=== PATIENT | male | born 1950 | race Caucasian/White ===

== ENCOUNTER 2019-12-22 15:40 | Inpatient (IN) | payer MEDICARE, BC ==
[2019-12-22] MEDS ORDERED: Acetaminophen 325 MG Tab PO PRN (16:01)
[2019-12-22] MEDS ORDERED: Acetaminophen 650 MG Supp RECTAL PRN (16:01)
[2019-12-22] MEDS ORDERED: hydrOXYzine HCl 25 MG Tab PO PRN (16:04)
[2019-12-22] MEDS ORDERED: HYDROmorphone 0.5 MG/0.5 ML Syringe IVPUSH PRN (16:07)
[2019-12-22] MEDS: Cholestyramine/Sucrose Powder 4 GM Packet PO SCH (17:40)
[2019-12-22] MEDS: Dextrose 5%-Lactated Ringers 1,000 ML IV SCH (19:03)
[2019-12-22] MEDS: Pantoprazole 40 MG Vial IV SCH (19:03)
[2019-12-22] MEDS: rOPINIRole 0.5 MG Tab PO SCH (21:34)
[2019-12-23] MEDS: Dextrose 5%-Lactated Ringers 1,000 ML IV SCH ×4 (02:14→23:20)
[2019-12-23] MEDS: Pantoprazole 40 MG Vial IV SCH ×2 (05:57→18:07)
[2019-12-23] MEDS: Cholestyramine/Sucrose Powder 4 GM Packet PO SCH ×2 (07:45→16:27)
[2019-12-23] MEDS: hydrOXYzine HCl 25 MG Tab PO SCH (08:14)
[2019-12-23] MEDS ORDERED: Metoprolol Tartrate 25 MG Tab PO SCH (09:00)
[2019-12-23] MEDS ORDERED: Tamsulosin 0.4 MG Cap.ER PO SCH (09:00)
--- NOTE | 2019-12-23 09:56 | PN ---
DATE OF SERVICE: 12/23/2019 SUBJECTIVE: Barber states he remains to have some pain in his right upper quadrant. He is n.p.o. for an EGD. REVIEW OF SYSTEMS: Remainder of review of systems negative for any pertinent positives and negatives. OBJECTIVE: GENERAL: Barber Keith is a pleasant 69-year-old male. VITAL SIGNS: TPR at 0212 is 96, 56, 16. Blood pressure 138/78. HEENT: Negative. NECK: Supple. HEART: Regular rate and rhythm. LUNGS: Clear. ABDOMEN: Remains to be tender with some fullness in the right upper quadrant, minimal in the mid epigastric area. EXTREMITIES: Without peripheral edema. ASSESSMENT: Severe mid epigastric abdominal pain, history of duodenal ulcer. PLAN: 1. Orders to be written post EGD. 2. Also of note, patient has a fecal stimulator in his right buttock, and he can regulate that himself. 3. Mrs. Keith will be bringing his CPAP machine for him to use. 4. We will evaluate p.r.n. or in a.m. Massiel Mtz PA-C /[id number]
[2019-12-23] MEDS ORDERED: Propofol 200 MG/20 ML SDV ONE (13:01)
[2019-12-23] MEDS ORDERED: fentaNYL 100 MCG/2 ML SDV ONE (13:01)
[2019-12-23] MEDS ORDERED: Midazolam 1 MG/ML 2 ML SDV ONE (13:01)
[2019-12-23] MEDS: HYDROmorphone 2 MG Tab PO PRN ×2 (18:06→23:19)
[2019-12-23 18:28] LABS: HEMOGLOBIN A1C 5.6 % (4.5-6.2)
[2019-12-23] MEDS: Tamsulosin 0.4 MG Cap.ER PO SCH (20:56)
[2019-12-23] MEDS: rOPINIRole 0.5 MG Tab PO SCH (20:57)
[2019-12-24] MEDS ORDERED: Acetaminophen 650 MG in Premix Bag 1 BAG IV ONE (01:10)
[2019-12-24] MEDS: Ondansetron 4 MG/2 ML SDV IVPUSH PRN ×2 (01:24→17:44)
[2019-12-24] MEDS: Pantoprazole 40 MG Vial IV SCH (05:08)
[2019-12-24] MEDS ORDERED: Bupivacaine 0.5% 50 ML MDV ONE (06:41)
[2019-12-24] MEDS ORDERED: Lidocaine 1% with EPINEPHrine 1:100,000 50 ML MDV ONE (06:41)
[2019-12-24] MEDS: Metoprolol Tartrate 25 MG Tab PO SCH (07:10)
[2019-12-24] MEDS ORDERED: Propofol 200 MG/20 ML SDV ONE ×2 (08:32→12:45)
[2019-12-24] MEDS ORDERED: Rocuronium 50 MG/5 ML Vial ONE (08:32)
[2019-12-24] MEDS ORDERED: Neostigmine Methylsulfate 1 MG/ML 5 ML Syringe ONE (08:32)
[2019-12-24] MEDS ORDERED: Succinylcholine 200 MG/10 ML MDV ONE (08:32)
[2019-12-24] MEDS ORDERED: Dexamethasone 4 MG/ML SDV ONE (08:32)
[2019-12-24] MEDS ORDERED: Ondansetron 4 MG/2 ML SDV ONE (08:32)
[2019-12-24] MEDS ORDERED: Glycopyrrolate 0.2 MG/ML 5 ML MDV ONE (08:32)
[2019-12-24] MEDS ORDERED: fentaNYL 250 MCG/5 ML SDV ONE ×2 (08:33→09:31)
[2019-12-24] MEDS: hydrOXYzine HCl 25 MG Tab PO SCH (08:55)
[2019-12-24] MEDS: Cholestyramine/Sucrose Powder 4 GM Packet PO SCH (08:55)
[2019-12-24] MEDS ORDERED: Magnesium Sulfate 3 GM in Sodium Chloride 0.9% 100 ML IV SCH (09:30)
[2019-12-24] MEDS ORDERED: Ketamine 50 MG in Sodium Chloride 0.9% 49.5 ML IV SCH (09:30)
[2019-12-24] MEDS ORDERED: Naloxone 0.4 MG/ML SDV IV PRN (09:30)
[2019-12-24] MEDS ORDERED: Magnesium Sulfate 4.8 GM in Sodium Chloride 0.9% 250 ML IV ONE (09:30)
[2019-12-24] MEDS ORDERED: Ropivacaine 50 ML, dexAMETHasone 8 MG, EPINEPHrine 0.4 MG, Sodium Chloride 0.9% 27.6 ML NERVRT SCH ×4 (09:30)
[2019-12-24] MEDS ORDERED: Ketamine 500 MG/5 ML MDV IV SCH (09:30)
[2019-12-24] MEDS ORDERED: cefOXitin 2 GM in Sodium Chloride 0.9% 50 ML IV ONE (09:30)
[2019-12-24] MEDS ORDERED: Labetalol 20 MG/4 ML Syringe ONE (10:22)
[2019-12-24] MEDS ORDERED: Lactated Ringers 1,000 ML ONE (10:26)
[2019-12-24] MEDS ORDERED: Meropenem 500 MG SDV ONE (11:26)
[2019-12-24] MEDS: HYDROmorphone/Normal Saline 15 MG/30 ML PCA IV PRN (12:27)
[2019-12-24] MEDS: Dextrose 5%-Lactated Ringers 1,000 ML IV SCH ×2 (13:55→21:13)
--- NOTE | 2019-12-24 14:01 | CR ---
CHEST: Portable 12/24/2019 at 1:09 PM CLINICAL HISTORY:Central line insertion COMPARISON:None FINDINGS: There is a left subclavian catheter in place. Tip is in the superior vena caval brachycephalic junction. Lungs are clear. There is no pneumothorax or effusion.. IMPRESSION: Left subclavian catheter placement No acute cardiopulmonary process
[2019-12-24] MEDS ORDERED: diphenhydrAMINE 50 MG/ML SDV IVPUSH PRN (15:00)
[2019-12-24] MEDS ORDERED: Calcium Gluconate 10% 1 GM/10 ML SDV IVPUSH PRN (15:00)
[2019-12-24] MEDS ORDERED: Metoclopramide 10 MG/2 ML SDV IVPUSH PRN (15:00)
[2019-12-24] MEDS ORDERED: Labetalol 20 MG/4 ML Syringe IVPUSH PRN (15:00)
[2019-12-24] MEDS ORDERED: hydrOXYzine HCL 100 MG/2 ML SDV IM PRN (15:00)
[2019-12-24] MEDS ORDERED: Acetaminophen 500 MG Tab PO PRN (15:00)
[2019-12-24] MEDS: cefOXitin 2 GM in Sodium Chloride 0.9% 50 ML IV SCH ×2 (15:37→21:14)
[2019-12-24] MEDS: Acetaminophen 500 MG Tab PO SCH (15:38)
[2019-12-24] MEDS ORDERED: MVI, Adult with Vitamin K 10 ML, Thiamine 200 MG, Chromium/Copper/Mang/Selen/Zn 1 ML in... IV SCH ×4 (16:00)
--- NOTE | 2019-12-24 16:37 | PN ---
DATE OF SERVICE: 12/24/2019 SUBJECTIVE: Barber is n.p.o. He will be going to Surgery. He had a pretty good night. He did wake up with a headache and some nausea during the middle of the night, was given some Tylenol and Zofran and that resolved. Surgery was explained to him by Eris Blackburn MD. He has no questions or concerns. REVIEW OF SYSTEMS: Remainder of review of systems negative for any pertinent positives and negatives. OBJECTIVE: GENERAL: Barber Keith is a pleasant 69-year-old male. He is alert and orientated. VITAL SIGNS: TPR at 0712: 95.6, 76, 16, blood pressure is 133/85. HEENT: Negative. NECK: Supple. HEART: Regular rate and rhythm. LUNGS: Clear. ABDOMEN: No change. Remains to have tenderness in the right upper quadrant. EXTREMITIES: Without peripheral edema. ASSESSMENT: Esophagogastroduodenoscopy. Eris Blackburn MD, on 12/23/2019. PLAN: He will be going to the OR today. Orders will be written postoperatively. Check EKG preop. We will evaluate p.r.n. or in a.. Massiel Mtz PA-C /[id number]
[2019-12-24] MEDS: Heparin Sodium 5,000 Units/ML Vial SUBCUT SCH (19:34)
[2019-12-24] MEDS: rOPINIRole 0.5 MG Tab PO SCH (21:16)
[2019-12-24] MEDS: Tamsulosin 0.4 MG Cap.ER PO SCH (21:17)
[2019-12-25] MEDS: Acetaminophen 500 MG Tab PO SCH ×4 (00:15→23:47)
[2019-12-25] MEDS: cefOXitin 2 GM in Sodium Chloride 0.9% 50 ML IV SCH ×4 (02:32→20:36)
[2019-12-25] MEDS: Dextrose 5%-Lactated Ringers 1,000 ML IV SCH (02:38)
[2019-12-25] MEDS ORDERED: Iopamidol 612 MG/ML 50 ML SDV PO ONE (03:06)
[2019-12-25] MEDS ORDERED: Pantoprazole 40 MG Vial IVPUSH SCH (06:00)
[2019-12-25] MEDS: Metoprolol Tartrate 25 MG Tab PO SCH (07:15)
[2019-12-25] MEDS ORDERED: Lactated Ringers 1,000 ML IV SCH (07:30)
[2019-12-25] MEDS: Cholestyramine/Sucrose Powder 4 GM Packet PO SCH ×2 (08:28→16:11)
[2019-12-25] MEDS: Heparin Sodium 5,000 Units/ML Vial SUBCUT SCH ×2 (08:28→20:34)
[2019-12-25] MEDS: Ondansetron 4 MG/2 ML SDV IVPUSH PRN (11:05)
[2019-12-25] MEDS: HYDROmorphone/Normal Saline 15 MG/30 ML PCA IV PRN (12:20)
[2019-12-25] MEDS ORDERED: MVI, Adult with Vitamin K 10 ML, Thiamine 200 MG, Chromium/Copper/Mang/Selen/Zn 1 ML in... IV SCH ×4 (16:00)
[2019-12-25] MEDS: Tamsulosin 0.4 MG Cap.ER PO SCH (20:36)
[2019-12-25] MEDS: rOPINIRole 0.5 MG Tab PO SCH (20:36)
[2019-12-26] MEDS: cefOXitin 2 GM in Sodium Chloride 0.9% 50 ML IV SCH ×2 (02:17→08:53)
[2019-12-26] MEDS ORDERED: Furosemide 20 MG/2 ML VIAL IVPUSH STA (06:37)
[2019-12-26] MEDS ORDERED: Lactated Ringers 1,000 ML IV SCH (07:30)
[2019-12-26] MEDS: Ondansetron 4 MG/2 ML SDV IVPUSH PRN ×2 (07:56→13:12)
[2019-12-26] MEDS: Cholestyramine/Sucrose Powder 4 GM Packet PO SCH ×3 (08:36→17:36)
[2019-12-26] MEDS: Pantoprazole 40 MG Tab.CR PO SCH (08:36)
[2019-12-26] MEDS: Metoprolol Tartrate 25 MG Tab PO SCH (08:36)
[2019-12-26] MEDS: Heparin Sodium 5,000 Units/ML Vial SUBCUT SCH ×2 (08:37→20:00)
[2019-12-26] MEDS: Acetaminophen 500 MG Tab PO SCH ×3 (08:37→23:21)
[2019-12-26] MEDS: Docusate Sodium 100 MG Cap PO SCH ×2 (08:38→20:53)
[2019-12-26] MEDS: Bisacodyl 5 MG Tab PO SCH ×2 (08:38→20:54)
[2019-12-26] MEDS: oxyCODONE 5 MG Tab PO PRN ×4 (08:41→23:20)
[2019-12-26] MEDS ORDERED: Cyanocobalamin (Vitamin B12) 1,000 MCG/ML SDV IM ONE (09:00)
[2019-12-26] MEDS: Potassium Phos in 0.9 % NaCl 15 MMOL in Premix Bag 1 BAG IV SCH ×4 (09:03→13:03)
[2019-12-26] MEDS: Magnesium Sulfate/Water 2 GM in Premix Bag 1 BAG IV SCH ×3 (10:40→19:59)
[2019-12-26] MEDS: Cyclobenzaprine 10 MG Tab PO PRN ×2 (11:51→21:14)
--- NOTE | 2019-12-26 12:32 | OR ---
DATE OF PROCEDURE: 12/23/2019 SURGEON: Eris Blackburn MD PREOPERATIVE DIAGNOSIS: Persistent upper abdominal pain. POSTOPERATIVE DIAGNOSIS: Persistent upper abdominal pain associated with mild pouch gastritis. OPERATIVE PROCEDURE: Upper gastrointestinal endoscopy with biopsies of gastric pouch for CLOtest. ANESTHESIA: IV sedation. INDICATION FOR PROCEDURE: The patient presents with some ongoing upper abdominal pain. This is predominantly in the right upper quadrant. He is status post a previous Iesha-en-Y gastric bypass done many years ago, and 6 months ago, had a perforated duodenal ulcer treated with an omental patch in [place]. He has had some persistent pain in that area which has increased significantly in the last few weeks. The plan is to proceed with upper GI endoscopy to make sure that we are not dealing with any pathology at the area of the existing gastrojejunostomy in terms of ulcer disease with a tentative plan to proceed with laparotomy and treatment of the probable persistent duodenal ulcer disease tomorrow. Potential risks of the procedure including bleeding and perforation were discussed, and the patient wishes to proceed. DETAILS OF PROCEDURE: The patient was taken to the operating room and placed in the left lateral decubitus position. IV sedation was administered, after which the upper GI endoscope was passed orally through the length of the esophagus into the gastric pouch, and from there, through the gastrojejunostomy roughly 20 cm into the Iesha limb. Findings included some very mild redness in the gastric pouch. Otherwise, there was inflammation and stricturing throughout the examined areas. Biopsies were taken from the gastric pouch and sent for CLOtest for H pylori. No bleeding from the biopsy sites was seen, and the procedure then concluded. This confirmed we would proceed with an open laparotomy tomorrow with probable total gastrectomy for treatment of what was likely to be persistent duodenal ulcer disease. As reviewed with the patient earlier, we will also utilize jejunojejunostomy component of the Iesha-en-Y gastric bypass as he has had some significant problems with weight regain and would position him to have a shorter common limb. Potential risks of that procedure had been reviewed earlier and will be reviewed tomorrow morning preoperatively as well including bleeding, infection, leaks from various GI tract closures, possible problems with bowel obstruction or high-frequency bowel movements following revisional procedure of the small bowel as well as possibly cardiopulmonary, septic, or hemorrhagic complications leading to were all discussed, and the patient wishes to proceed. Eris Blackburn MD /[id number]
--- NOTE | 2019-12-26 12:32 | PN ---
DATE OF SERVICE: 12/25/2019 The patient has been afebrile with stable vital signs. Overnight, urine output has been satisfactory. The upper GI looked okay and has tolerated a step-1 diet. The labs showed hemoglobin down to 12.8 which would be expected given the intraoperative blood loss. Otherwise, blood sugar was somewhat high at 365. It was noticed preoperative hemoglobin A1c was 5.6, so his diabetes in general has been in remission. We will turn the IV over to plain LR at 100 mL/ hour and I suspect that will come down, we will recheck another in the morning. Otherwise, we will maximize activity and work with pulmonary toilet. Eris Blackburn MD /[id number]
[2019-12-26] MEDS ORDERED: Furosemide 20 MG/2 ML VIAL IVPUSH ONE (14:00)
[2019-12-26] MEDS ORDERED: MVI, Adult with Vitamin K 10 ML, Thiamine 200 MG, Chromium/Copper/Mang/Selen/Zn 1 ML in... IV SCH ×4 (16:00)
[2019-12-26] MEDS: rOPINIRole 0.5 MG Tab PO SCH (20:53)
[2019-12-26] MEDS: Tamsulosin 0.4 MG Cap.ER PO SCH (20:53)
[2019-12-27] MEDS: Acetaminophen 500 MG Tab PO SCH ×2 (02:28→07:47)
[2019-12-27] MEDS: Magnesium Sulfate/Water 2 GM in Premix Bag 1 BAG IV SCH ×2 (02:53→07:48)
[2019-12-27] MEDS: oxyCODONE 5 MG Tab PO PRN ×2 (04:58→09:11)
[2019-12-27 07:42] VITALS: BP 131/64; PULSE 85
[2019-12-27] MEDS: Heparin Sodium 5,000 Units/ML Vial SUBCUT SCH (07:47)
[2019-12-27] MEDS: Metoprolol Tartrate 25 MG Tab PO SCH (07:47)
[2019-12-27] MEDS: Cholestyramine/Sucrose Powder 4 GM Packet PO SCH (07:48)
[2019-12-27] MEDS: Pantoprazole 40 MG Tab.CR PO SCH (07:48)
--- NOTE | 2019-12-27 10:39 | CR ---
UGI Limited HISTORY: Postbariatric surgery FINDINGS: Patient swallowed water-soluble contrast. Upright views of the abdomen show no evidence of extravasation or obstruction. There are surgical drains in both upper quadrants IMPRESSION: Status post bariatric surgery No extravasation or obstruction seen
--- NOTE | 2019-12-27 11:08 | PN ---
DATE OF SERVICE: 12/26/2019 The patient has been afebrile with stable vital signs, was little bit lower in terms of his oxygenation, and I suspect he needs to work on his pulmonary toilet, but also probably has some element of fluid overload. He was given Lasix 20 IV this morning and we will repeat that at 2 o'clock this afternoon and otherwise back down on the IV rate. His potassium is marginally low as is the phosphate, so we will empirically give him 30 mmol of K-Phos today in order to prevent hypokalemia. Otherwise, we will go over all oral pain medications, initiate some bowel stimulation and go up to a step-3 diet. Magnesium is also somewhat low and that will be supplemented IV until he is discharged. Eris Blackburn MD /[id number]
--- NOTE | 2019-12-27 12:48 | DISCH ---
ADMISSION DIAGNOSES: Chronic right upper quadrant abdominal pain, epigastric pain, postop malnutrition, history of Iesha-en-Y gastric bypass surgery, vitamin B12 deficiency, vitamin B complex deficiency, vitamin D deficiency, zinc deficiency, vitamin A deficiency, disorder of copper metabolism, paroxysmal supraventricular tachycardia , major depression in complete remission, elevated fasting glucose, hypomagnesium, spondylosis thoracic, iron-deficiency anemia, benign prostatic hypertrophy, coronary artery disease, obstructive sleep apnea, hypertension, cardiomegaly, hyperlipidemia, restless legs, alcohol use disorder, severe, in remission. DISCHARGE DIAGNOSES: Upper gastrointestinal endoscopy with biopsies of gastric pouch for CLOtest for persistent upper abdominal pain associated with mild pouch gastritis. Date: 12/23/2019. Surgeon: Eris Blackburn MD. Exploratory laparotomy with; 1. Total gastrectomy with Iesha-en-Y gastrojejunostomy. 2. Revision of the jejunojejunostomy component of current Iesha-en-Y gastric bypass. 3. Excision of left parasternal lipoma. 4. Placement of Interceed mesh x2. 5. Insertion of left subclavian triple lumen. POSTOPERATIVE DIAGNOSES: 1. Limited peripheral vein access. 2. Persistent complicated duodenal ulcer status post previous Iesha-en-Y gastric bypass surgery. 3. Weight regain status post Iesha-en-Y gastric bypass surgery. 4. 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 Date of surgery, 12/24/2019. HISTORY: Barber Keith is a 69-year-old male who had been going upper abdominal pain predominantly in the mid epigastric and right upper quadrant. He had a Iesha-en-Y gastric bypass surgery done many years ago and 6 months ago had a perforated duodenal ulcer treated with omental patch in [place], [place]. He had persistent pain in that area and increased significantly in the past few weeks. After preoperative evaluation and discussion of possible risks and possible complications, he wished to proceed with surgical procedure. HOSPITAL COURSE: An upper gastrointestinal endoscopy with biopsy was done on 12/23/2019, followed by laparotomy as stated above on 12/24/2019. Upper GI was normal. He was started on a step 1 diet, and then advanced to step 2 gastric bypass diet and advancing to step 3. Pain was controlled with oral pain medication, oxycodone and Flexeril. He was up ambulating. Vital signs were stable. He did have some fluid overload on postoperative day 1 and 2, and was given Lasix and that resolved. Has not had a bowel movement yet, but he states he is starting to pass flatus and his cholestyramine was discontinued yesterday in hopes of helping to have a bowel movement along with bowel stimulation. Barber received dietary instruction on step 3 gastric bypass diet and he is able to be discharged to home without any complications. PHYSICAL EXAMINATION: GENERAL: Barber Keith is a 69-year-old male. Height 5 feet 8.5 inches. Weight is 228 pounds. He is alert and orientated. VITAL SIGNS: TPR is 97.9, 73, 16. Blood pressure 136/65. O2 on 1 L of oxygen is 92%. HEENT: Negative. NECK: Supple. HEART: Regular rate and rhythm. LUNGS: Clear. ABDOMEN: At time of rounds, both DIXIE drains were intact, and over the past 24 hours have put out 45 and 30 mL of a light pink drainage. These will be removed prior to discharge. He has had 100% of his meals. Oral intake 1680. Urine output with diuretics was 6125. Aquacel dressings on. Abdominal binder is on. EXTREMITIES: Without peripheral edema. DISPOSITION: Discharged to home. CONDITION: Stable and improving. FOLLOWUP APPOINTMENT: Massiel Mtz PA-C, at [facility] 01/04/2020 at 12 p.m. HOME MEDICATIONS: 1. Colace 100 mg b.i.d. #60. 2. Flexeril 10 mg oral every 8 hours p.r.n., muscle spasms. 3. Oxycodone 5 mg every 4 hours p.r.n. pain, #42. 4. Tylenol Extra Strength 1000 mg q.8 hours p.r.n. pain. He is to resume his home medications; 1. Calcium with vitamin D3 b.i.d. 2. Vitamin B12 1 tablet daily. 3. Cymbalta 30 mg q.a.m. 4. Ferrous sulfate 325 oral twice daily. 5. Folic acid 1 mg oral daily. 6. Magnesium chloride 64 oral every morning. 7. Metoprolol 25 mg oral twice daily. 8. Miconazole cream 1 applicator topical twice daily at corners of mouth. 9. Multivitamin 1 tablet daily. 10.Protonix 40 mg oral every morning. 11.Crestor 20 mg every morning. 12.Flomax 0.4 mg at bedtime. 13.Thiamine 100 mg every morning. 14.Vistaril 50 mg at bedtime. He is to discontinue taking cholestyramine. At his next appointment, vitamins will be reviewed and changed according to Iesha-en-Y bariatric protocol. DIET: Step 3 gastric bypass diet. ACTIVITY: No lifting greater than 10 pounds for 6 weeks. Other activity: Walk at least 6 times inside your home daily. Driving: Do not drive for 1 week and while on pain medication. Shower/bathing: May shower. DISCHARGE INSTRUCTIONS: Notify provider if any fever, pain, swelling, redness, drainage, nausea, vomiting. Take off Aquacel dressing in 3 days on , 12/30/2019. Wear abdominal binder for 6 weeks and then as tolerated. SPECIAL INSTRUCTION: Use incentive spirometer 10 times every hour while awake for 1 week.
--- NOTE | 2019-12-28 10:59 | OR ---
DATE OF PROCEDURE: 12/24/2019 SURGEON: Eris Blackburn MD PREOPERATIVE DIAGNOSES: 1. Probable persistent duodenal ulcer status post previous Iesha-en-Y gastric bypass. 2. Weight regain status post previous Iesha-en-Y gastric bypass. 3. Inadequate peripheral venous access. POSTOPERATIVE DIAGNOSES: 1. Persistent complicated duodenal ulcer status post previous Iesha-en-Y gastric bypass. 2. Weight regain status post Iesha-en-Y gastric bypass. 3. Left parasternal lipoma. 4. Inadequate peripheral venous access. OPERATIVE PROCEDURES: 1. Exploratory laparotomy with;. a. Total gastrectomy with Iesha-en-Y gastrojejunostomy (42691). b. Revision of jejunojejunostomy component of Iesha-en-Y gastric bypass (03264). c. Excision of left parasternal lipoma (15148). d. Placement of Interceed mesh x2 to limit adhesion formation between pelvic and abdominal wall and underlying viscera (42338). 2. Insertion of left subclavian vein triple-lumen catheter (12808). ANESTHESIA: General. HOUSEKEEPING AIDE: Massiel Mtz PA-C INDICATIONS FOR PROCEDURE: This is a 69-year-old who is status post previous Iesha-en-Y gastric bypass, presenting with 2 problems. The patient underwent a patch closure of perforated duodenal ulcer roughly 6 months ago at [facility] in [place]. Since that time, he has had persistent discomfort in the right upper quadrant and clinically has fullness and some degree of discomfort on examination in that area. On closer examination of the CT scan obtained earlier this week did show some continued edema in the area of the antrum and duodenum. The patient is also status post weight regain status post previous Iesha-en-Y gastric bypass. The plan at this point will be to proceed with exploratory laparotomy and total gastrectomy removing all of the bypassed portion of the stomach, and we would then also revise the jejunojejunostomy component of Iesha-en-Y gastric bypass to facilitate some additional weight loss. Because of the complicated nature of the duodenal ulcer, this will all need to be done with an open approach. Potential risks of the procedure including bleeding, infection, leaks from various GI tract closures, as well as the possibility of cardiopulmonary, septic, or hemorrhagic complications leading to were discussed, and additionally that the patient may have with regard to revision of the small bowel component, problems with more frequent loose bowel movements or diarrhea and need to maintain additionally vigilant approach to his nutritional status and following up were all gone over, and the patient wishes to proceed. DETAILS OF PROCEDURE: The patient was taken to the operative room. After general endotracheal anesthesia was induced, Joyce catheter was inserted, and the abdomen prepped and draped. A midline incision was made from the xiphoid to the level of the umbilicus, carried down through full thickness of abdominal wall. Upon entering peritoneal cavity, fair bit of adhesions were encountered between the viscera and the anterior abdominal wall as well as between the loops of small bowel. When dissected upward toward the previous gastric bypass, gastrojejunostomy site, there were fair bit of adhesions of bowel between the omentum and liver. These were all taken down with a combination of blunt and cautery dissection. An Adriana tube was then passed orally through the area of the gastric pouch and gastrojejunostomy and into the Iesha limb to help create the location of those structures. Subsequent dissection began then in the mid greater curvature where the omentum was divided away with electrocautery, entrance into the lesser sac. The omentum was then divided away from the greater curvature in the proximal direction which then extended up into the short gastric vessels and the area above that where there were adhesions beneath the gastric fundus. There was almost a dense fusion of the fundus and the area of the gastrojejunostomy which would result in opening of the previous gastrojejunostomy requiring subsequent reconstruction. Further dissection along the lesser curvature continued downward with removal of the attachment to the lesser curvature of the stomach. The bypassed portion of stomach was then retrieved through the area behind the Iesha limb with the patient having had a previous antecolic Iesha limb and care was taken to maintain the mesenteric vasculature to Iesha limb during the course of dissection. The dissection then continued distally where the attachments to the antrum and proximal duodenum were encountered. There was very dense inflammatory changes in the area of the duodenum. A gastrotomy was then placed in order to digitally confirm the level of the pylorus and dissection then continued roughly 3 cm distal to that point. At that level, the duodenum became somewhat soft and appeared to be amenable to closure of that level which was then accomplished with GRIS black curved load and the gastrectomy specimen then delivered from the field. The duodenal stump specimen at that point appeared to be satisfactory. The gastrojejunostomy was then reinforced. This mass was essentially at the level of the esophagogastric junction. The new anastomosis was then accomplished over the Adriana tube with closure of the common opening between the stomach and Iesha limb with a layer of 3-0 Vicryl stitch and then another layer of 3-0 Vicryl seromuscular stitch and the area then reinforced with fibrin sealant as well. Attention was then taken to the revision of the jejunojejunostomy component of the Iesha limb. The Iesha limb was then divided flush with the jejunojejunostomy with a GRIS stapler, and a small segment of that was then excised to provide little bit more mobility of the distal end of the Iesha limb for subsequent anastomosis. The final length of the limb at this point was 80 cm. The biliopancreatic limb was fairly short at this point and the small bowel was then identified at the level of the ileocecal valve and then traced out 200 cm with an intention of designing to create a common alimentary limb of 350 cm with the predominance of this being in the common limb. This should likely be tolerated degree of malabsorption and at the same time resulting in some gradual weight loss. The newly formed biliopancreatic limb at this point was then measured at 410 cm with a long biliopancreatic limb also likely contributing to stabilization and probable improvement of patient's metabolic status. The anastomosis between the Iesha limb and small bowel 230 cm proximal to ileocecal valve was then accomplished with internal firing of the Endo-GRIS 60 mm stapler followed by an internal firing of 30 mm stapler. Common opening was then closed transversely with a GRIS purple load. The angles anastomosed and reinforced with some 3-0 Vicryl stitch. The mesenteric defect to both this area as well as the area of the previous jejunojejunostomy was then closed with 2-0 silk stitch. The abdomen was then irrigated with antibiotic-containing saline solution. No further problems were noted at this point. Of note upon entering the abdomen at the area adjacent to the sternum, the patient noted to have a lipoma located in the subfascial area. This was on the left side of the sternum and measured 6.5 cm in eventual dimension and that had been removed and sent as a separate pathologic specimen. Two Phil-Redd drains were placed, one in the left subcostal area which was positioned against the newly formed gastrojejunostomy, and the 2nd drain in the right subcostal area and placed across the duodenal closure site. The latter at that point had been reinforced with sealant and omental patch tacked over that area to help secure its closure as well. There was no omentum for the distance between the abdominal wall and the underlying small bowel and other viscera. Given this 2 Interceed meshes were placed beginning in the pelvic area and the anterior abdominal wall underneath the incision. The midline fascia was then approximated with #2 Vicryl stitch and subcutaneous tissue approximated with 2 layers of 3-0 and 4-0 Vicryl stitch deep and jenniffer for the skin. Prior to closure, bilateral subcostal transverse abdominis plane blocks had been placed and the incision was anesthetized with 0.5% Marcaine mixed with lidocaine as well and the patient taken to the recovery room in satisfactory condition. There were no evident complications. Physician legislative assistant, Massiel Mtz, played an essential role in assisting in this case, helping to position the patient, retract structures as needed, as well as suturing and cutting sutures when indicated. Her presence improved the patient's safety and decreased operative time. One additional aspect of this case has to do with the patient having a poor peripheral venous access, and after initiation of the general anesthetic, left subclavian triple-lumen catheter was placed using standard technique and it was flushed with heparinized saline and sutured to skin with some 3-0 silk stitch and a dressing had been applied. Subsequent chest x-ray showed no complications and good catheter position. Eris Blackburn MD /[id number]
== END 2019-12-27 10:00 | disposition home or self-care (01) | DRG 327 ==
LOC: JP.MS 15:40
PROVIDERS: ADMIT Surgery; ATTEND Surgery
PROC: 0DB68ZX Excision of Stomach, Via Natural or Artificial Opening Endoscopic, Diagnostic (ICD-10-PCS; 2019-12-23)
PROC: 0D160ZA Bypass Stomach to Jejunum, Open Approach (ICD-10-PCS; principal; 2019-12-24)
PROC: 0DT60ZZ Resection of Stomach, Open Approach (ICD-10-PCS; 2019-12-24)
PROC: 0JB60ZZ Excision of Chest Subcutaneous Tissue and Fascia, Open Approach (ICD-10-PCS; 2019-12-24)
PROC: 02HV33Z Insertion of Infusion Device into Superior Vena Cava, Percutaneous Approach (ICD-10-PCS; 2019-12-24)
DX: K95.89 Other complications of other bariatric procedure (principal); K91.2 Postsurgical malabsorption, not elsewhere classified; K26.9 Duodenal ulcer, unspecified as acute or chronic, without hemorrhage or perforation; K29.70 Gastritis, unspecified, without bleeding; Z98.84 Bariatric surgery status; E53.8 Deficiency of other specified B group vitamins; E53.9 Vitamin B deficiency, unspecified; E55.9 Vitamin D deficiency, unspecified; E50.9 Vitamin A deficiency, unspecified; E60 Dietary zinc deficiency; F32.9 Major depressive disorder, single episode, unspecified; M47.814 Spondylosis without myelopathy or radiculopathy, thoracic region; D50.9 Iron deficiency anemia, unspecified; N40.0 Benign prostatic hyperplasia without lower urinary tract symptoms; I25.10 Atherosclerotic heart disease of native coronary artery without angina pectoris; G47.33 Obstructive sleep apnea (adult) (pediatric); I10 Essential (primary) hypertension; E78.5 Hyperlipidemia, unspecified; G25.81 Restless legs syndrome; F10.21 Alcohol dependence, in remission; D17.4 Benign lipomatous neoplasm of intrathoracic organs; Y84.8 Other medical procedures as the cause of abnormal reaction of the patient, or of later complication, without mention of misadventure at the time of the procedure; Z68.33 Body mass index [BMI] 33.0-33.9, adult; R63.5 Abnormal weight gain; G47.00 Insomnia, unspecified; I08.0 Rheumatic disorders of both mitral and aortic valves; Z20.828 Contact with and (suspected) exposure to other viral communicable diseases
CPT/HCPCS: 36415; 74240; 74240-26; 80053; 82962; 83036; 83735; 83880; 84100; 85025; 85027; 86850; 86900; 86901; 86920; 86922; 87081; 88304; 88305; 88307; 93005; 93010; 94762; A9270-GY; C9113; J0131; J0171; J0330; J0694; J1100; J1170; J1642; J1644; J1940; J2185; J2250; J2405; J2704; J2710; J2795; J3010; J3411; J3420; J3475; J3490; J7050; J7120; J7121; Q9967; U0002

== ENCOUNTER 2020-02-16 13:17 | Inpatient (IN) | payer MEDICARE, BC ==
[2020-02-16] MEDS: HYDROmorphone/Normal Saline 15 MG/30 ML PCA IV PRN (14:55)
[2020-02-16] MEDS ORDERED: MVI, Adult with Vitamin K 10 ML, Chromium/Copper/Mang/Selen/Zn 1 ML in Lactated Ringers... IV ONE ×3 (15:00)
[2020-02-16] MEDS ORDERED: Naloxone 0.4 MG/ML SDV IV PRN (15:00)
[2020-02-16] MEDS ORDERED: Ketamine 500 MG/5 ML MDV IV SCH (16:00)
[2020-02-16] MEDS ORDERED: Ketamine 50 MG in Sodium Chloride 0.9% 49.5 ML IV SCH (16:00)
[2020-02-16] MEDS: Meropenem 500 MG in Sodium Chloride 0.9% 50 ML IV SCH ×2 (16:40→22:49)
[2020-02-16] MEDS: Pantoprazole 40 MG Vial IV SCH (16:41)
[2020-02-16] MEDS: Dextrose 5%-Lactated Ringers 1,000 ML IV SCH (20:04)
[2020-02-16] MEDS: Metoprolol Tartrate 25 MG Tab PO SCH (20:08)
[2020-02-16] MEDS: rOPINIRole 0.5 MG Tab PO SCH (20:08)
[2020-02-16] MEDS: Tamsulosin 0.4 MG Cap.ER PO SCH (20:09)
[2020-02-17] MEDS: Meropenem 500 MG in Sodium Chloride 0.9% 50 ML IV SCH ×4 (03:30→21:28)
[2020-02-17] MEDS: Dextrose 5%-Lactated Ringers 1,000 ML IV SCH ×2 (03:30→09:58)
[2020-02-17] MEDS ORDERED: Bupivacaine 0.5% 50 ML MDV ONE (06:38)
[2020-02-17] MEDS ORDERED: Lidocaine 1% with EPINEPHrine 1:100,000 50 ML MDV ONE (06:38)
[2020-02-17] MEDS ORDERED: Meropenem 500 MG SDV ONE (06:38)
[2020-02-17] MEDS ORDERED: Succinylcholine 200 MG/10 ML MDV ONE (07:07)
[2020-02-17] MEDS ORDERED: Propofol 200 MG/20 ML SDV ONE (07:07)
[2020-02-17] MEDS ORDERED: Glycopyrrolate 0.2 MG/ML 5 ML MDV ONE (07:07)
[2020-02-17] MEDS ORDERED: Rocuronium 50 MG/5 ML Vial ONE (07:07)
[2020-02-17] MEDS ORDERED: Dexamethasone 4 MG/ML SDV ONE (07:07)
[2020-02-17] MEDS ORDERED: Ondansetron 4 MG/2 ML SDV ONE (07:07)
[2020-02-17] MEDS ORDERED: Neostigmine Methylsulfate 1 MG/ML 5 ML Syringe ONE (07:07)
[2020-02-17] MEDS ORDERED: fentaNYL 250 MCG/5 ML SDV ONE (07:09)
[2020-02-17] MEDS: DULoxetine 30 MG Cap PO SCH (08:14)
[2020-02-17] MEDS: Metoprolol Tartrate 25 MG Tab PO SCH ×2 (08:14→21:27)
[2020-02-17] MEDS ORDERED: Lactated Ringers 1,000 ML ONE (08:50)
[2020-02-17] MEDS ORDERED: Scopolamine 1.5 MG Transdermal Patch TOP SCH (10:15)
[2020-02-17] MEDS: Acetaminophen 500 MG Tab PO SCH ×2 (10:37→17:44)
[2020-02-17] MEDS ORDERED: hydrOXYzine HCL 100 MG/2 ML SDV IM PRN (11:00)
[2020-02-17] MEDS ORDERED: Metoclopramide 10 MG/2 ML SDV IVPUSH PRN (11:00)
[2020-02-17] MEDS ORDERED: Acetaminophen 500 MG Tab PO PRN (11:00)
[2020-02-17] MEDS ORDERED: diphenhydrAMINE 50 MG/ML SDV IVPUSH PRN (11:00)
[2020-02-17] MEDS ORDERED: Labetalol 20 MG/4 ML Syringe IVPUSH PRN (11:00)
[2020-02-17] MEDS ORDERED: Ondansetron 4 MG/2 ML SDV IVPUSH PRN (11:00)
[2020-02-17] MEDS: HYDROmorphone/Normal Saline 15 MG/30 ML PCA IV PRN (11:29)
--- NOTE | 2020-02-17 12:01 | PN ---
DATE OF SERVICE: 02/17/2020 SUBJECTIVE: Barber is n.p.o. for surgery today. He has had his questions answered. Remains to have abdominal pain, managed by a INCOME TAX MANAGER. REVIEW OF SYSTEMS: Remainder of review of systems negative for any pertinent positives and negatives. OBJECTIVE: GENERAL: Barber Keith is a pleasant 69-year-old male. He is alert and orientated. VITAL SIGNS: TPR at 0720, 96.6; 68; 16; blood pressure 109/56. HEENT: Negative. NECK: Supple. HEART: Regular rate and rhythm. LUNGS: Clear. ABDOMEN: Remains to be tender in the right upper quadrant and right mid quadrant. EXTREMITIES: Without peripheral edema. ASSESSMENT: Abdominal abscess. PLAN: Orders to be written postoperatively. After preoperative evaluation, discussion of possible risks and possible complications, the patient wishes to proceed with surgical procedure. Massiel Mtz PA-C /[id number]
[2020-02-17] MEDS: Pantoprazole 40 MG Vial IV SCH (16:03)
[2020-02-17] MEDS: MVI, Adult with Vitamin K 10 ML, Thiamine 200 MG, Chromium/Copper/Mang/Selen/Zn 1 ML in... IV SCH ×4 (16:43)
[2020-02-17] MEDS: Celecoxib 200 MG Cap PO SCH (21:25)
[2020-02-17] MEDS: Tamsulosin 0.4 MG Cap.ER PO SCH (21:25)
[2020-02-17] MEDS: rOPINIRole 0.5 MG Tab PO SCH (21:28)
[2020-02-18] MEDS: Dextrose 5%-Lactated Ringers 1,000 ML IV SCH ×3 (00:29→23:13)
[2020-02-18] MEDS: Acetaminophen 500 MG Tab PO SCH ×3 (03:09→17:39)
[2020-02-18] MEDS: Meropenem 500 MG in Sodium Chloride 0.9% 50 ML IV SCH ×4 (03:10→21:26)
[2020-02-18] MEDS: DULoxetine 30 MG Cap PO SCH (09:24)
[2020-02-18] MEDS: Celecoxib 200 MG Cap PO SCH ×2 (09:24→21:26)
[2020-02-18] MEDS: SCOPOLAMINE PATCH CHECK TOP SCH (09:25)
[2020-02-18] MEDS: Metoprolol Tartrate 25 MG Tab PO SCH ×2 (09:52→21:27)
[2020-02-18] MEDS: HYDROmorphone/Normal Saline 15 MG/30 ML PCA IV PRN (10:42)
--- NOTE | 2020-02-18 15:06 | PN ---
DATE OF SERVICE: 02/18/2020 SUBJECTIVE: Barber is postoperative day 1. Hemoglobin this morning was 9.9. His pain was better controlled after he got up and walked he states. One of his DIXIE drains apparently was plugged. His DIXIE drain #1 put out 160, then 30, and 60. Two other DIXIE drains are light brown bile-looking. The other is red and only a small amount. Remainder of review of systems negative for any pertinent positives and negatives. OBJECTIVE: GENERAL: Bud is a pleasant 69-year-old male. He is alert and orientated. VITAL SIGNS: TPR at 0714 is 95.7, 60, 18. Blood pressure 108/65. HEENT: Negative. NECK: Supple. HEART: Regular rate and rhythm. LUNGS: Clear. ABDOMEN: Dressings dry and intact. DIXIE drains as above. EXTREMITIES: Without peripheral edema. ASSESSMENT: Exploratory laparotomy with drainage of right subphrenic abscess, separate subhepatic periduodenal abscess. Date of procedure: 02/17/2020. Surgeon: Eris Blackburn MD. PLAN: 1. Schedule, have consent signed for delayed primary closure. IV/local/TAP block 02/19/2020 at 0730, n.p.o. after midnight, and surgeon Eris Blackburn. 2. Continue Joyce catheter for accurate output. 3. Empty DIXIE drains every 2 hours. 4. Check labs in a.m. 5. Continue use of incentive spirometer and ambulation. 6. We will evaluate p.r.n. or in a.m. Massiel Mtz PA-C /[id number]
[2020-02-18] MEDS: Pantoprazole 40 MG Vial IV SCH (15:56)
[2020-02-18] MEDS: MVI, Adult with Vitamin K 10 ML, Thiamine 200 MG, Chromium/Copper/Mang/Selen/Zn 1 ML in... IV SCH ×4 (15:56)
[2020-02-18] MEDS: Tamsulosin 0.4 MG Cap.ER PO SCH (21:26)
[2020-02-18] MEDS: rOPINIRole 0.5 MG Tab PO SCH (21:26)
[2020-02-19] MEDS: Acetaminophen 500 MG Tab PO SCH ×3 (01:55→18:24)
[2020-02-19] MEDS: Meropenem 500 MG in Sodium Chloride 0.9% 50 ML IV SCH (03:36)
[2020-02-19] MEDS ORDERED: Bupivacaine 0.5% 50 ML MDV ONE (06:09)
[2020-02-19] MEDS ORDERED: Meropenem 500 MG SDV ONE (06:09)
[2020-02-19] MEDS ORDERED: Lidocaine 1% with EPINEPHrine 1:100,000 50 ML MDV ONE (06:09)
[2020-02-19] MEDS: Dextrose 5%-Lactated Ringers 1,000 ML IV SCH ×2 (06:47→14:10)
[2020-02-19] MEDS ORDERED: Propofol 200 MG/20 ML SDV ONE (07:13)
[2020-02-19] MEDS ORDERED: fentaNYL 100 MCG/2 ML SDV ONE (07:13)
[2020-02-19] MEDS ORDERED: Midazolam 1 MG/ML 2 ML SDV ONE (07:13)
[2020-02-19] MEDS: HYDROmorphone/Normal Saline 15 MG/30 ML PCA IV PRN (08:34)
[2020-02-19] MEDS ORDERED: Cyanocobalamin (Vitamin B12) 1,000 MCG/ML SDV IM ONE (09:00)
[2020-02-19] MEDS: DULoxetine 30 MG Cap PO SCH (09:10)
[2020-02-19] MEDS: Celecoxib 200 MG Cap PO SCH ×2 (09:10→21:53)
[2020-02-19] MEDS: Metoprolol Tartrate 25 MG Tab PO SCH ×2 (09:11→21:55)
[2020-02-19] MEDS: SCOPOLAMINE PATCH CHECK TOP SCH (10:12)
[2020-02-19] MEDS: Bisacodyl 5 MG Tab PO SCH ×2 (10:18→21:53)
[2020-02-19] MEDS: Docusate Sodium 100 MG Cap PO SCH ×2 (10:18→21:53)
[2020-02-19] MEDS: Magnesium Sulfate/Water 2 GM/50 ML BAG IV SCH ×3 (10:52→22:01)
[2020-02-19] MEDS: Potassium Phos in 0.9 % NaCl 15 MMOL in Premix Bag 1 BAG IV SCH ×6 (11:13→16:07)
--- NOTE | 2020-02-19 13:43 | OR ---
DATE OF PROCEDURE: 02/19/2020 SURGEON: Eris Blackburn MD PREOPERATIVE DIAGNOSIS: Open abdominal incision. POSTOPERATIVE DIAGNOSIS: Open abdominal incision. OPERATIVE PROCEDURE: Delayed primary closure of open abdominal incision. ANESTHESIA: Local plus IV sedation. INDICATION FOR PROCEDURE: The patient underwent a drainage of intraabdominal abscess and subhepatic abscess 48 hours earlier. The wound was left open to avoid high risk of wound infection as delayed primary closure at this time. Potential risks including bleeding and infection were reviewed, and the patient wishes to proceed. DETAILS OF PROCEDURE: The patient was taken to the operating room and placed in a supine position. IV sedation was administered after which the operative dressing was taken down and found to be clean. The wound was then prepped and draped, anesthetized with 1% lidocaine mixed with Marcaine and irrigated with a meropenem-containing saline solution. The wound was then closed with a 3-0 Vicryl stitch deep and then jenniffer for the skin. This was along the right subcostal incision. Lateral to the incision, both tap blocks were placed on the right side using ultrasound guidance and the patient then taken to the recovery room in satisfactory condition. Eris Blackburn MD /[id number]
--- NOTE | 2020-02-19 14:41 | PN ---
DATE OF SERVICE: 02/19/2020 The patient has been afebrile with stable vital signs. He had some blood in his urine last night. Foley catheter was removed, and he has been urinating satisfactorily. Cultures came back showing E. coli, which is sensitive to everything on the panel. Given this, I think we will simplify the antibiotics, getting rid of the meropenem, and narrow spectrum with Azactam. All 3 days, he had some bile present, thus likely may have a duodenal stump leak, but this appears to be well drained. We will get the wound closed today and then restart him on some diet, and he is beginning to pass quite a bit of gas, and I think his bowel will likely be moving in the next day or so. We will add some bowel stimulation after the closure. Eris Blackburn MD /[id number]
[2020-02-19] MEDS: MVI, Adult with Vitamin K 10 ML, Thiamine 200 MG, Chromium/Copper/Mang/Selen/Zn 1 ML in... IV SCH ×4 (15:31)
[2020-02-19] MEDS: Pantoprazole 40 MG Vial IV SCH (15:40)
[2020-02-19] MEDS: Tamsulosin 0.4 MG Cap.ER PO SCH (21:53)
[2020-02-19] MEDS: rOPINIRole 0.5 MG Tab PO SCH (21:55)
[2020-02-20] MEDS: Acetaminophen 500 MG Tab PO SCH ×3 (02:09→17:00)
[2020-02-20] MEDS: Magnesium Sulfate/Water 2 GM/50 ML BAG IV SCH ×4 (03:04→21:37)
[2020-02-20] MEDS: Dextrose 5%-Lactated Ringers 1,000 ML IV SCH (03:07)
[2020-02-20] MEDS: HYDROmorphone/Normal Saline 15 MG/30 ML PCA IV PRN (06:06)
[2020-02-20] MEDS ORDERED: Dextrose 5%-Lactated Ringers 1,000 ML IV SCH (08:00)
[2020-02-20] MEDS: Potassium Chloride 20 MEQ Tab.ER PO SCH ×3 (08:57→17:00)
[2020-02-20] MEDS: Celecoxib 200 MG Cap PO SCH ×2 (08:57→21:31)
[2020-02-20] MEDS: Ciprofloxacin 500 MG Tab PO SCH ×2 (08:57→21:31)
[2020-02-20] MEDS: Docusate Sodium 100 MG Cap PO SCH ×2 (08:58→21:31)
[2020-02-20] MEDS: Bisacodyl 5 MG Tab PO SCH ×2 (08:58→21:31)
[2020-02-20] MEDS: DULoxetine 30 MG Cap PO SCH (08:58)
[2020-02-20] MEDS: Metoprolol Tartrate 25 MG Tab PO SCH ×2 (08:58→21:30)
[2020-02-20] MEDS: HYDROmorphone 2 MG Tab PO PRN ×2 (09:31→15:45)
[2020-02-20] MEDS: Pantoprazole 40 MG Tab.CR PO SCH (10:16)
[2020-02-20] MEDS: Cyclobenzaprine 10 MG Tab PO PRN ×2 (10:48→18:41)
[2020-02-20] MEDS: Ondansetron 4 MG Tab.DIS PO PRN ×2 (12:16→18:41)
[2020-02-20] MEDS: Furosemide 20 MG/2 ML VIAL IVPUSH SCH ×2 (14:01→20:00)
--- NOTE | 2020-02-20 17:34 | PN ---
DATE OF SERVICE: 02/20/2020 The patient has been afebrile with stable vital signs. Hemoglobin done at 8.3 given 2 units packed RBCs today. Otherwise, fistula drains are about the same and so he will be going home with those probably tomorrow. After the BUN today we will give him Lasix 10 mg IV and we will supplement his potassium today as well, otherwise we will maximize activity and work with pulmonary toilet. In anticipation of going home on some oral antibiotics, we will start Cipro 500 mg p.o. b.i.d. today and make sure that is tolerated and he will likely go home with that and will be on IV Azactam that he is presently on. Eris Blackburn MD /[id number]
[2020-02-20] MEDS: Tamsulosin 0.4 MG Cap.ER PO SCH (21:30)
[2020-02-20] MEDS: rOPINIRole 0.5 MG Tab PO SCH (21:30)
[2020-02-20] MEDS: oxyCODONE 5 MG Tab PO PRN (21:31)
[2020-02-20] MEDS: LORazepam 0.5 MG Tab PO PRN (22:02)
[2020-02-21] MEDS: oxyCODONE 5 MG Tab PO PRN ×2 (02:41→08:35)
[2020-02-21] MEDS: Acetaminophen 500 MG Tab PO SCH (02:41)
[2020-02-21] MEDS: Magnesium Sulfate/Water 2 GM/50 ML BAG IV SCH (03:00)
[2020-02-21] MEDS: LORazepam 0.5 MG Tab PO PRN (03:03)
[2020-02-21] MEDS ORDERED: Furosemide 20 MG/2 ML VIAL IVPUSH ONE (06:42)
[2020-02-21] MEDS ORDERED: Potassium Chloride 20 MEQ Tab.ER PO ONE (06:43)
[2020-02-21 08:21] VITALS: BP 119/70; PULSE 65
[2020-02-21] MEDS: Metoprolol Tartrate 25 MG Tab PO SCH (08:35)
[2020-02-21] MEDS: Pantoprazole 40 MG Tab.CR PO SCH (08:36)
[2020-02-21] MEDS: Ciprofloxacin 500 MG Tab PO SCH (08:36)
[2020-02-21] MEDS: DULoxetine 30 MG Cap PO SCH (08:37)
[2020-02-21] MEDS: Docusate Sodium 100 MG Cap PO SCH (08:37)
[2020-02-21] MEDS: Celecoxib 200 MG Cap PO SCH (08:37)
[2020-02-21] MEDS: Bisacodyl 5 MG Tab PO SCH (08:38)
--- NOTE | 2020-02-21 12:25 | OR ---
DATE OF PROCEDURE: 02/17/2020 SURGEON: Eris Blackburn MD PREOPERATIVE DIAGNOSIS: Right subphrenic abscess. POSTOPERATIVE DIAGNOSES: 1. Right subphrenic abscess. 2. Separate subhepatic/periduodenal abscess. OPERATIVE PROCEDURES: Exploratory laparotomy with: 1. Drainage of right subhepatic abscess (57490). 2. Drainage of separate subhepatic/periduodenal abscess (33926). ANESTHESIA: General. SHOP FITTER: Massiel Mtz PA-C INDICATION FOR PROCEDURE: The patient is a week status post esophagogastrectomy for problems related to previous Iesha-en-Y gastric bypass. He had been doing well, but now presents with a picture of increasing abdominal pain, particularly on the right side and a sense of malaise. A CT scan of the abdomen was obtained yesterday, which showed what appeared to be a subphrenic abscess with some extension into the periduodenal area. Plan is to proceed with a right subcostal incision so as to avoid having any previous inflammation related to midline incision and then drainage of the abscess or abscesses. Potential risks of the procedure including bleeding, infection, leaks from underlying viscera, problems with development of problems such as postoperative duodenal stump leak were all reviewed, along with the remote possibility of cardiopulmonary, septic, or hemorrhagic complications leading to were all discussed, and the patient wishes to proceed. DETAILS OF PROCEDURE: The patient was taken to the operating room and placed in a supine position. After general endotracheal anesthesia was induced, a Joyce catheter was inserted, and the abdomen prepped and draped. A right subcostal incision was then made and carried down through the skin and subcutaneous tissue and through the full thickness of the abdominal wall. Initially, the area underlying the incision was noted to be not significantly inflamed. The dissection then continued upward between the liver and the diaphragm and the abscess in that area was then broken into. Cultures were obtained. This contained some thin purulent material within it, and this was all then evacuated. The abscess cavity that was seen in the right subhepatic and periduodenal area was not connected to this one. Dissection was then continued bluntly between the liver and the transverse colon and that subhepatic and periduodenal abscess was then encountered. This was separately evacuated, and additional cultures were obtained. At this point, the area of concern appeared to be satisfactorily drained. The areas were then irrigated with meropenem and Zyvox-containing saline solution. A total of 3 Phil- Redd drains were placed lateral to the main incision. These were then brought up with 2 placed into the area of the subphrenic abscess and the third one tracked down over the transverse colon into the tract of the subhepatic/periduodenal abscess. Of note, no bile or obvious leaks from the duodenum were encountered at this point. With no further problems noted, the transversus abdominis plane blocks were placed. Both of these were placed on the right side, given the location of the incision. The midline peritoneum and musculature were then reapproximated with 2 layers of #2 Vicryl stitch. Skin and subcutaneous tissue were felt to be at high risk for wound infection if they were closed, and were therefore packed open for a planned delayed primary closure in 48 hours. The patient was taken to the recovery room in satisfactory condition. Physician nutrition services assistant, Massiel Mtz, played an essential role in assisting in this case, helping to position the patient, retract structures as needed, as well as suturing and cutting sutures when indicated. Her presence improved patient safety and decreased operative time. Eris Blackburn MD /[id number]
--- NOTE | 2020-02-21 17:46 | DISCH ---
ADMISSION DIAGNOSES: Abdominal pain, status post Iesha-en-Y gastric bypass surgery, unspecified surgical malabsorption, B12 deficiency, cardiomegaly, coronary artery disease, depression with anxiety, disease of tricuspid valve, hyperlipidemia, hypertension, insomnia, iron deficiency anemia, mitral valve insufficiency, pulmonary valve disorder, restless legs syndrome, sleep apnea, supraventricular premature beats, and alcoholism in remission. DISCHARGE DIAGNOSES: 1. Delayed primary closure of open abdominal incision. Date: 02/19/2020. Surgeon: Eris Blackburn MD. 2. Exploratory laparotomy with drainage of right subphrenic abscess, separate subhepatic periduodenal abscess. Date of procedure: 02/17/2020. Surgeon: Eris Blackburn MD. 3. Persistent bile leak, liver or duodenal stump. HISTORY: Barber Keith is a pleasant 69-year-old male who presented to the clinic on 02/16/2020 with an increase in abdominal pain in the right upper quadrant. He was a direct admit to the hospital after a CT scan showed an abscess in his right upper quadrant. Surgery was scheduled for the next day on 02/17/2020 after preoperative evaluation and discussion of possible risks and possible complications. He had a delayed primary closure on 02/19/2020. There were no complications. His wound abscess grew out Escherichia coli and sensitivities were obtained. He was on appropriate antibiotics. Pain was well managed. He does have 3 DIXIE drains, which will remain in when he goes home and Mrs. Keith was taught how to empty these. Vital signs stable. Activity good. Oral intake adequate. He was able to be discharged to home without any complications on 02/21/2020. PHYSICAL EXAMINATION: GENERAL: Barber Keith is a pleasant 69-year-old male. VITAL SIGNS: Height 5 feet 10 inches, weight is 194 pounds. TPR 98.4, 65, 20, blood pressure 119/70. HEENT: Negative. NECK: Supple. HEART: Regular rate and rhythm. LUNGS: Clear. ABDOMEN: Dressings dry and intact. Aquacel dressings on. He has 3 DIXIE drains and are each draining a green bile type substance. EXTREMITIES: Without peripheral edema. DISPOSITION: Discharged to home. CONDITION: Stable and improving. FOLLOWUP: Appointment on 03/08/2020 at 12 p.m. NEW PRESCRIPTIONS: 1. Lorazepam 0.5 mg oral every 4 hours p.r.n. anxiety, #30. 2. Celebrex 200 mg oral b.i.d., #28. 3. Cipro 500 mg oral twice daily, #14. 4. Flexeril 10 mg oral q.8 hours p.r.n. muscle spasms, #30. 5. Oxycodone 5 mg every 4 hours p.r.n. pain, #42. 6. Tylenol Extra-Strength 1000 mg every 8 hours p.r.n. pain. 7. He is to resume home medications: a. B12 1000 mcg sublingual daily. b. Cymbalta 30 mg oral every morning. c. Colace 100 mg twice daily. d. Ferrous sulfate 325 mg oral twice daily. e. Folic acid 1 mg oral daily. f. Magnesium 64 mg oral every morning. g. Lopressor 25 mg oral twice daily. h. Miconazole 1 applicator twice daily for redness of the corners of the mouth. i. Multivitamin 1 tablet daily. j. Protonix 40 mg oral every morning. k. Crestor 20 mg oral every morning. l. Flomax 0.4 mg oral at bedtime. m. Thiamine 100 mg oral every morning. n. Vistaril 50 mg oral at bedtime p.r.n. anxiety. DIET: Step 4 gastric bypass diet. Drink 8 to 10 glasses of water a day. ACTIVITY: No lifting over 10 pounds for 6 weeks. Other activity: Walk at least 6 times inside your home. Driving: Do not drive for 1 week and while on narcotic pain medication. Shower/bathing: May shower. DISCHARGE INSTRUCTIONS: Notify provider if any fever, increased pain, swelling, redness, nausea, or vomiting. Keep site clean and dry. Wear abdominal binder for 6 weeks and then as tolerated. Take off large Aquacel dressing on , 02/24/2020. SPECIAL INSTRUCTIONS: 1. Strip, empty, measure, and record amount and color of each DIXIE drain separately 4 times a day or when bulbs are half full. Bring record of drainage to clinic appointment. 2. Use incentive spirometer 10 times every hour while awake. 3. Walk around every hour in the car on the way home and wear support hose to prevent blood clots.
== END 2020-02-21 10:43 | disposition home or self-care (01) | DRG 856 ==
LOC: JP.2SS 13:17 → JP.MS 02-20 02:50
PROVIDERS: ADMIT Surgery; ATTEND Surgery
PROC: 0F900ZZ Drainage of Liver, Open Approach (ICD-10-PCS; principal; 2020-02-17)
PROC: 0D9L0ZZ Drainage of Transverse Colon, Open Approach (ICD-10-PCS; 2020-02-17)
PROC: 0WQF0ZZ Repair Abdominal Wall, Open Approach (ICD-10-PCS; 2020-02-19)
PROC: 30233N1 Transfusion of Nonautologous Red Blood Cells into Peripheral Vein, Percutaneous Approach (ICD-10-PCS; 2020-02-21)
DX: T81.49XA Infection following a procedure, other surgical site, initial encounter (principal); K65.1 Peritoneal abscess; K91.2 Postsurgical malabsorption, not elsewhere classified; E53.8 Deficiency of other specified B group vitamins; I25.10 Atherosclerotic heart disease of native coronary artery without angina pectoris; F41.9 Anxiety disorder, unspecified; F32.9 Major depressive disorder, single episode, unspecified; E78.5 Hyperlipidemia, unspecified; I10 Essential (primary) hypertension; G47.00 Insomnia, unspecified; D50.9 Iron deficiency anemia, unspecified; I08.1 Rheumatic disorders of both mitral and tricuspid valves; G25.81 Restless legs syndrome; G47.30 Sleep apnea, unspecified; I49.1 Atrial premature depolarization; F10.21 Alcohol dependence, in remission; B96.20 Unspecified Escherichia coli [E. coli] as the cause of diseases classified elsewhere; Y83.8 Other surgical procedures as the cause of abnormal reaction of the patient, or of later complication, without mention of misadventure at the time of the procedure; Z20.828 Contact with and (suspected) exposure to other viral communicable diseases; Z98.84 Bariatric surgery status
CPT/HCPCS: 36415; 36430; 74177; 74177-26; 80053; 82607; 82728; 82746; 83735; 83880; 84100; 85025; 85027; 86850; 86900; 86901; 86920; 86922; 87070; 87075; 87077; 87186; 87205; 94762; A9270-GY; C9113; J0171; J0330; J1100; J1170; J1940; J2020; J2185; J2250; J2405; J2704; J2710; J2795; J3010; J3410; J3411; J3420; J3475; J3490; J7050; J7120; J7121; P9016; P9047; Q9967; U0002